=== PATIENT | male | born 1955 | race Caucasian/White ===

== ENCOUNTER 2025-03-07 14:01 | Emergency (ER) | payer MEDICARE ==
[~2025-03-07 14:01] MED LIST: Iopamidol 300 61% 100 ML VIAL FS ONE
[2025-03-07 14:40] LABS: #Basophils 0.03 10x3/uL (0.0-0.2); #Eosinophils 0.10 10x3/uL (0.0-0.5); #Monocytes 0.61 10x3/uL (0.0-1.1); #Neutrophils 11.45 10x3/uL (1.5-8.4); %Basophils 0.2 % (0.0-2.0); %Eosinophils 0.8 % (0.0-6.0); %Lymphocytes 5.7 % (18.0-47.0); %Monocytes 4.7 % (0.0-10.0); %Neutrophils 88.1 % (40.0-75.0); Hematocrit 42.7 % (38.8-50.0); Hemoglobin 14.4 g/dL (13.5-17.5); Mean Corpuscular Hemoglobin 31.2 pg (27.0-33.0); Mean Corpuscular Volume 92.6 fL (81.2-95.1); Platelet Count 227 10x3/uL (150-450); Red Blood Cell (RBC) Count 4.61 10x6/uL (4.32-5.72); White Blood Cell (WBC) Count 12.99 10x3/uL (3.5-10.5)
[2025-03-07 15:00] LABS: ALT (SGPT) 689 U/L (Less than 45); AST (SGOT) 361 U/L (11-34); Albumin 3.9 g/dL (3.1-4.5); Alkaline Phosphatase 273 U/L (40-110); Anion Gap 15 mmol/L (10-20); BUN (Urea Nitrogen) 15 mg/dL (8.4-25.7); Bilirubin, Total 6.0 mg/dL (0.3-1.2); CK (CPK) 62 U/L (30-200); Calc. Creatinine Clearance 0 mL/min (70-130); Calcium 8.7 mg/dL (7.8-10.44); Carbon Dioxide 25 mmol/L (23-31); Chloride 104 mmol/L (98-107); Globulin 3.5 g/dL (2.4-3.5); Glucose 149 mg/dL (80-115); Magnesium 1.9 mg/dL (1.6-2.6); Potassium 3.7 mmol/L (3.5-5.1); Sodium 140 mmol/L (136-145)
[2025-03-07 15:01] LABS: Troponin I Less than 0.010 ng/mL (< 0.028)
[2025-03-07 18:24] LABS: Glucose, Urine (Dipstick) Normal (Negative); Leukocyte Negative (Negative); Protein, Urine (Dipstick) 30 mg/dl (Neg-Trace); Specific Gravity, Urine 1.010 (1.005-1.030)
[2025-03-07 19:01] LABS: Bacteria/HPF None Seen HPF (None Seen); CAUTI Indications for Culture Pelvic or flank pain; RBC/HPF 0-3 HPF (0-3); Urine Culture Reflex No No; WBC/HPF None Seen HPF (0-3)
== END 2025-03-07 19:34 | disposition short-term general hospital (02) ==
LOC: CSHERS 14:01
DX: K80.50 Calculus of bile duct without cholangitis or cholecystitis without obstruction (principal); I10 Essential (primary) hypertension
CPT/HCPCS: 71045; 74177; 76705; 81001; 82550; 83605; 83690; 83735; 84484; 93005; J2270; J2543; Q9967; 80053; 84443; 85025; 96374; 96375; 96376